=== PATIENT | male | born 1960 | race Caucasian/White ===

== ENCOUNTER 2020-05-26 15:00 | Emergency (ER) | payer MEDICAID ==
[~2020-05-26] VITALS: Ht 188 cm; Wt 96.2 kg
[~2020-05-26 15:00] MED LIST: ASPI-611 PO; ATOR40TA PO; CARV-50 PO; CHLO25TA2 PO; CLON0.1T2 PO; GABA-530 PO; GLIM4TAB7 PO; LISI-222 PO; METF500T PO; NORCO10T PO; VITC500T PO
[2020-05-26 16:38] VITALS: BP 167/108
[2020-05-26] MEDS ORDERED: metroNIDAZOLE 500mg tablet PO ONE (17:05)
[2020-05-26] MEDS ORDERED: cephalexin 250mg capsule PO ONE (17:05)
[2020-05-26] MEDS ORDERED: CEPH-572 PO (17:08)
[2020-05-26] MEDS ORDERED: METR-159 PO (17:08)
== END 2020-05-26 17:31 | disposition home or self-care (01) ==
LOC: ER 15:00
DX: E11.621 Type 2 diabetes mellitus with foot ulcer (principal); L97.519 Non-pressure chronic ulcer of other part of right foot with unspecified severity; E11.42 Type 2 diabetes mellitus with diabetic polyneuropathy; I10 Essential (primary) hypertension; F32.9 Major depressive disorder, single episode, unspecified; F15.90 Other stimulant use, unspecified, uncomplicated; Z86.14 Personal history of Methicillin resistant Staphylococcus aureus infection; Z59.0 Homelessness; Z79.82 Long term (current) use of aspirin; Z79.2 Long term (current) use of antibiotics; Z79.899 Other long term (current) drug therapy
CPT/HCPCS: 36415; 73630; 82948; 99281; 99283; J3490

== ENCOUNTER 2022-12-23 10:34 | Emergency (ER) | payer MEDICAID ==
[~2022-12-23] VITALS: Ht 188 cm; Wt 93.2 kg
[2022-12-23 10:44] VITALS: BP 148/79
[2022-12-23] MEDS ORDERED: predniSONE 20 mg tablet PO ONE (11:40)
[2022-12-23] MEDS ORDERED: INDO-12 PO (11:42)
[2022-12-23] MEDS ORDERED: METH4TAB3 PO (11:42)
== END 2022-12-23 12:03 | disposition home or self-care (01) ==
LOC: ER 10:34
DX: M10.9 Gout, unspecified (principal); I10 Essential (primary) hypertension; J44.9 Chronic obstructive pulmonary disease, unspecified; E11.9 Type 2 diabetes mellitus without complications; F32.A Depression, unspecified; F15.10 Other stimulant abuse, uncomplicated; Z59.00 Homelessness unspecified; Z79.899 Other long term (current) drug therapy
CPT/HCPCS: 73130; 99283; J7512

== ENCOUNTER 2022-12-28 09:58 | Emergency (ER) | payer MEDICAID ==
[~2022-12-28] VITALS: Ht 188 cm; Wt 122.2 kg
[~2022-12-28 09:58] MED LIST changes: +INDO-12 PO; +METH4TAB3 PO
[2022-12-28] MEDS ORDERED: LIDOcaine 1% 30ml preserv. free vial IJ ONE (10:55)
[2022-12-28] MEDS ORDERED: sulfamethoxazole/trimethoprim DS (800/160mg) tablet PO ONE (10:55)
[2022-12-28] MEDS ORDERED: cephalexin 500mg capsule PO ONE (10:55)
[2022-12-28] MEDS ORDERED: CEPH-585 PO (11:44)
[2022-12-28] MEDS ORDERED: SULF1TAB49 PO (11:44)
[2022-12-28 11:53] VITALS: BP 145/91
== END 2022-12-28 11:56 | disposition home or self-care (01) ==
LOC: ER 09:58
DX: L03.114 Cellulitis of left upper limb (principal); L02.512 Cutaneous abscess of left hand; J44.9 Chronic obstructive pulmonary disease, unspecified; E11.9 Type 2 diabetes mellitus without complications; F15.20 Other stimulant dependence, uncomplicated; Z59.00 Homelessness unspecified; Z91.040 Latex allergy status
CPT/HCPCS: 10060; 99284; A6266; A6407

== ENCOUNTER 2023-01-02 13:48 | Emergency (ER) | payer MEDICAID ==
[~2023-01-02] VITALS: Ht 188 cm; Wt 100.0 kg
[~2023-01-02 13:48] MED LIST changes: +CEPH-585 PO; +SULF1TAB49 PO
[2023-01-02 13:50] VITALS: BP 150/81
== END 2023-01-02 15:18 | disposition home or self-care (01) ==
LOC: ER 13:49
DX: S60.36 Insect bite (nonvenomous) of thumb (principal); Z91.040 Latex allergy status; W57.XXXD Bitten or stung by nonvenomous insect and other nonvenomous arthropods, subsequent encounter
CPT/HCPCS: 99281

== ENCOUNTER 2023-01-05 11:48 | Emergency (ER) | payer MEDICAID ==
[~2023-01-05] VITALS: Ht 188 cm; Wt 122.2 kg
[2023-01-05 11:50] VITALS: BP 126/67
== END 2023-01-05 12:21 | disposition home or self-care (01) ==
LOC: ER 11:48
DX: S61.052D Open bite of left thumb without damage to nail, subsequent encounter (principal); I10 Essential (primary) hypertension; J44.9 Chronic obstructive pulmonary disease, unspecified; E11.9 Type 2 diabetes mellitus without complications; F15.20 Other stimulant dependence, uncomplicated; Z91.040 Latex allergy status; Z59.00 Homelessness unspecified; W57.XXXD Bitten or stung by nonvenomous insect and other nonvenomous arthropods, subsequent encounter
CPT/HCPCS: 99281

== ENCOUNTER 2023-01-08 10:25 | Emergency (ER) | payer MEDICAID ==
[~2023-01-08] VITALS: Ht 188 cm; Wt 101.0 kg
[2023-01-08 10:30] VITALS: BP 105/75
== END 2023-01-08 11:08 | disposition home or self-care (01) ==
LOC: ER 10:25
DX: R21 Rash and other nonspecific skin eruption (principal); I10 Essential (primary) hypertension; J44.9 Chronic obstructive pulmonary disease, unspecified; E11.9 Type 2 diabetes mellitus without complications; F15.20 Other stimulant dependence, uncomplicated; Z91.040 Latex allergy status; Z59.00 Homelessness unspecified
CPT/HCPCS: 99281

== ENCOUNTER 2023-12-24 10:11 | Emergency (ER) | payer MEDICAID ==
[~2023-12-24] VITALS: Ht 188 cm; Wt 84.1 kg
[~2023-12-24 10:11] MED LIST changes: -SULF1TAB49 PO
[2023-12-24 10:17] VITALS: BP 192/93; PULSE 77; RESP 18; TEMP 96.6; O2SAT 99
[2023-12-24] MEDS ORDERED: TRIA15CR61 TOP (11:32)
== END 2023-12-24 11:57 | disposition home or self-care (01) ==
LOC: ER 10:12
DX: L30.9 Dermatitis, unspecified (principal); I10 Essential (primary) hypertension; J44.9 Chronic obstructive pulmonary disease, unspecified; E11.9 Type 2 diabetes mellitus without complications; Z91.040 Latex allergy status; Z79.82 Long term (current) use of aspirin; Z79.899 Other long term (current) drug therapy
CPT/HCPCS: 99283